=== PATIENT | female | born 1990 | race Caucasian/White ===

== ENCOUNTER 2019-09-29 13:20 | Emergency (ER) | payer OTHER, SELFPAY ==
[2019-09-29 13:36] VITALS: BP 139/100; PULSE 93; RESP 14; TEMP 36.7; O2SAT 99
--- NOTE | 2019-09-29 14:05 | ED.GENADULT ---
HPI - General Adult General Chief complaint: Upper Respiratory Infection Stated complaint: Sore Throat Time Seen by Provider: 09/29/19 14:05 Source: patient Mode of arrival: ambulatory Limitations: no limitations History of Present Illness HPI narrative: 28-year-old female patient presents to the [facility] with complaints of sore throat, nasal congestion, runny nose and low-grade fevers for the past 4 to 5 days. Patient denies any chest pain or shortness of breath. Patient states that she did not get a flu shot this year. Patient states she has been taking [id number] Gabrielle-Kulm cold and flu as well as Tylenol for symptoms. Patient denies or breast-feeding at this time. Related Data Home Medications Medication Instructions Recorded Confirmed insulin glargine [Lantus U-100 30 unit SUBCUT BID 09/29/19 09/29/19 Insulin] insulin lispro [Admelog U-100 10 unit SUBCUT TID 09/29/19 09/29/19 Insulin lispro] levothyroxine 137 mcg PO DAILY 09/29/19 09/29/19 Allergies Allergy/AdvReac Type Severity Reaction Status Date / Time Sulfa (Sulfonamide Allergy Unknown Rash Verified 09/29/19 13:51 Antibiotics) Review of Systems Review of Systems: Narrative: CONSTITUTIONAL: Positive subjective low-grade fever, positive body aches and chills, denies sweats. EYES: Denies visual changes, redness, or discharge. ENT: Positive rhinorrhea, congestion, positive sore throat, denies otalgia. CARDIOVASCULAR: Denies chest pain, palpitations, or edema. RESPIRATORY: Positive cough denies dyspnea. GASTROINTESTINAL: Denies abdominal pain, nausea, vomiting, or diarrhea. GENITOURINARY: Denies dysuria or hematuria. SKIN: Denies rash or itching. MUSCULOSKELETAL: Denies back pain, joint pain, or myalgia. NEUROLOGIC: Denies headache, numbness, or weakness. PSYCHIATRIC: Denies anxiety or depression. PMFSH Comments At the time of my signature I agree with nursing past medical history, surgical, social, and family history. There is no relevant family history pertinent to the presenting complaint. Exam Narrative: Exam Narrative: GENERAL: Well-appearing, well-nourished, and in no acute distress. HEAD: Normocephalic, atraumatic. No tenderness noted to frontal maxillary sinuses on palpation. EYES: PERRLA and EOMI. ENT: Nares with erythema and edema noted bilaterally, no rhinorrhea or epistaxis. Mucous membranes moist. Posterior pharynx with slight erythema but no tonsil enlargement no exudates or lesions present. Bilateral TMs are clear no erythema or foreign bodies in the canal. NECK: Supple. No lymphadenopathy CHEST: Clear to auscultation. No respiratory distress. HEART: Regular rate and rhythm. No murmur heard. Normal peripheral pulses. ABDOMEN: Soft, nontender, nondistended, normal active bowel sounds. EXTREMITIES: Normal range of motion. No edema. SKIN: Warm, dry, no rash. NEURO: No focal deficits. Alert and oriented x3. Course Vital Signs Vital signs: Vital Signs Temperature 36.7 C 09/29/19 13:36 Pulse Rate 93 09/29/19 13:36 Respiratory Rate 14 09/29/19 13:36 Blood Pressure 139/100 H 09/29/19 13:36 Pulse Oximetry 99 09/29/19 13:36 Temperature 36.7 C 09/29/19 13:36 Pulse Rate 93 09/29/19 13:36 Respiratory Rate 14 09/29/19 13:36 Blood Pressure 139/100 H 09/29/19 13:36 Pulse Oximetry 99 09/29/19 13:36 Vital signs reviewed. The patient has been informed that they may have pre-hypertension or Hypertension based on a BP reading in the department. I recommend that the patient call the primary care provider listed on their discharge instructions or a physician of their choice this week to arrange follow up for further evaluation of possible pre-hypertension or Hypertension Medical Decision Making Differential Diagnosis Differential Diagnosis: Differential diagnosis: Allergic rhinitis, chronic sinusitis, tonsillitis, acute sinusitis, infectious mononucleosis, seasonal influenza, pertussis, dipht
== END 2019-09-29 14:24 | disposition home or self-care (01) ==
PROVIDERS: Emergency Provider Nurse Practitioner Family
DX: J10.1 Influenza due to other identified influenza virus with other respiratory manifestations (principal); E11.9 Type 2 diabetes mellitus without complications; E03.9 Hypothyroidism, unspecified; Q96.9 Turner's syndrome, unspecified
CPT/HCPCS: 87081; 87804; 87880; 99213; G0463

== ENCOUNTER 2020-06-17 19:00 | Emergency (ER) | payer OTHER, SELFPAY ==
[2020-06-17 19:14] VITALS: BP 139/95; PULSE 107; RESP 16; TEMP 36.5; O2SAT 100
--- NOTE | 2020-06-17 19:24 | ED.GENADULT ---
HPI - General Adult General Chief complaint: Unspecified Stated complaint: hbp Source: patient Mode of arrival: ambulatory Limitations: no limitations History of Present Illness HPI narrative: Patient is a 29-year-old female who presents complaining of hypertension. She reports noticing her blood pressure was high when she returned from work. She reports blood pressure of 140s/100. Patient's current blood pressure is 139/95. She denies chest pain or shortness of breath, she denies headache. Patient has a history of Booker syndrome. Patient also reporting intermittent left leg cramping. She denies swelling or injury to the leg. She denies pain at this time. MD complaint: Hypertension Related Data Home Medications Medication Instructions Recorded Confirmed insulin glargine [Lantus U-100 30 unit SUBCUT BID 09/29/19 06/17/20 Insulin] insulin lispro [Admelog U-100 10 unit SUBCUT TID 09/29/19 06/17/20 Insulin lispro] levothyroxine 137 mcg PO DAILY 09/29/19 06/17/20 Allergies Allergy/AdvReac Type Severity Reaction Status Date / Time Sulfa (Sulfonamide Allergy Unknown Rash Verified 06/17/20 19:20 Antibiotics) Review of Systems Review of Systems: Narrative: CONSTITUTIONAL: Denies fever, chills, or sweats. EYES: Denies visual changes, redness, or discharge. ENT: Denies rhinorrhea, congestion, sore throat, or otalgia. CARDIOVASCULAR: Denies chest pain, palpitations, or edema. RESPIRATORY: Denies cough or dyspnea. GASTROINTESTINAL: Denies abdominal pain, nausea, vomiting, or diarrhea. GENITOURINARY: Denies dysuria or hematuria. SKIN: Denies rash or itching. MUSCULOSKELETAL: Left leg cramping NEUROLOGIC: Denies headache, numbness, dizziness, or weakness. PSYCHIATRIC: Denies anxiety or depression. [facility] Past Medical History Medical History Diabetes Hypothyroidism Booker syndrome Social History Social History (Updated 06/17/20 @ 19:29 by BRADEN Gonzalez) Smoking status: Never smoker Alcohol intake: never Substance use: never Living arrangements: with family Exam Narrative: Exam Narrative: GENERAL: Well-appearing, well-nourished, and in no acute distress. HEAD: Normocephalic, atraumatic. EYES: No redness or drainage. ENT: Mucous membranes pink and moist. NECK: AROM. Supple. No lymphadenopathy. CHEST: No respiratory distress. HEART: Regular rate and rhythm. No murmur appreciated. Normal peripheral pulses. EXTREMITIES: Normal range of motion. No edema. SKIN: Warm, dry, no rash. NEURO: No focal deficits. Alert and oriented x3. Gait steady. PSYCH: Normal affect. No signs of depression or anxiety. Course Vital Signs Vital signs: Vital Signs Temperature 36.5 C 06/17/20 19:14 Pulse Rate 107 H 06/17/20 19:14 Respiratory Rate 16 06/17/20 19:14 Blood Pressure 139/95 H 06/17/20 19:14 Pulse Oximetry 100 06/17/20 19:14 Temperature 36.5 C 06/17/20 19:14 Pulse Rate 107 H 06/17/20 19:14 Respiratory Rate 16 06/17/20 19:14 Blood Pressure 139/95 H 06/17/20 19:14 Pulse Oximetry 100 06/17/20 19:14 Reviewed. Patient has been instructed to follow-up with her PCP regarding her blood pressure. Medical Decision Making MDM Narrative Medical decision making narrative: Patient concerned with hypertension, patient is asymptomatic in urgent care. Discussed with patient that follow-up is necessary with PCP for further evaluation. Discussed with patient left lower leg pain, no edema noted, good pedal pulses discussed symptoms to watch for and follow-up necessary with PCP as well. Patient is stable for discharge to home with outpatient follow-up. Patient aware if she develops chest pain, shortness of breath or headache, to go to the emergency department for further evaluation. Differential Diagnosis Differential Diagnosis: Hypertension Vital Signs Vital Signs: Vital Signs Temperature 36.5 C 06/17/20 19:14 P
== END 2020-06-17 19:59 | disposition home or self-care (01) ==
PROVIDERS: Emergency Provider Nurse Practitioner; PCP Family Medicine
DX: I10 Essential (primary) hypertension (principal); E11.9 Type 2 diabetes mellitus without complications; E03.9 Hypothyroidism, unspecified; Q96.9 Turner's syndrome, unspecified; Z79.4 Long term (current) use of insulin
CPT/HCPCS: 99211; G0463

== ENCOUNTER 2021-07-25 10:18 | Emergency (ER) | payer OTHER, SELFPAY ==
[2021-07-25 10:25] VITALS: BP 135/88; PULSE 84; RESP 18; TEMP 36.5; O2SAT 100
--- NOTE | 2021-07-25 10:32 | ED.URI ---
HPI - URI/Sore Throat General Chief Complaint: Upper Respiratory Infection Stated Complaint: sore throat Time Seen by Provider: 07/25/21 10:32 Source: patient, RN notes reviewed and old records reviewed Mode of arrival: ambulatory Limitations: no limitations History of Present Illness HPI Narrative: 30-year-old female presents to the [facility] with complaints of a sore throat since yesterday. Use cough drops. No other treatment prior to arrival Has some sinus congestion and postnasal drip. No fevers, chest pain, abdominal pain. MD elicited complaint: sore throat and rhinorrhea Related Data Home Medications Medication Instructions Recorded Confirmed insulin glargine [Lantus U-100 30 unit SUBCUT BID 09/29/19 07/25/21 Insulin] insulin lispro [Admelog U-100 10 unit SUBCUT TID 09/29/19 07/25/21 Insulin lispro] levothyroxine 137 mcg PO DAILY 09/29/19 07/25/21 nifedipine 60 mg PO DAILY 07/25/21 07/25/21 pantoprazole 20 mg PO DAILY 07/25/21 07/25/21 Allergies Allergy/AdvReac Type Severity Reaction Status Date / Time Sulfa (Sulfonamide Allergy Unknown Rash Verified 07/25/21 10:33 Antibiotics) Review of Systems Review of Systems: All systems reviewed & are unremarkable except as noted in HPI and below Constitutional: Constitutional: Reports no additional constitutional complaints, Denies chills and Denies fever(s) Eyes: Eyes: Reports no additional eye complaints ENT: Reports as per HPI, Reports nasal congestion and Reports sore throat Cardiovascular: Cardiovascular: Reports no additional cardiovascular complaints and Denies chest pain Respiratory: Respiratory: Reports no additional respiratory complaints, Denies cough, Denies dyspnea and Denies wheezing Musculoskeletal: Musculoskeletal: Reports no additional musculoskeletal complaints Integumentary/Breasts: Skin/Breast: Reports system reviewed and no additional complaints, except as docu Neurologic: Reports system reviewed and no additional complaints, except as documented Psychiatric: Psychiatric: Reports no additional psychiatric complaints Allergic/Immunologic: Allergic/Immunologic: Reports no additional allergic/immunologic complaints PMFSH Past Medical History Medical History Diabetes Hypothyroidism Booker syndrome Social History Social History Smoking status: Never smoker Alcohol intake: never Substance use: never Comments At the time of my signature, I reviewed and agree with the nursing past medical, surgical, social, and family history. There is no relevant family history pertinent to the patient complaint. Exam Const: General: healthy appearing, no acute distress and alert Nutritional Appearance: well nourished Orientation/consciousness: patient oriented x3 Limitations: no limitations HENMT: Head: normal to inspection Ears: hearing grossly normal bilaterally and external ears normal General nose exam: Normal external nose present and Nasal discharge present clear Face and sinus: normal facial exam and sinuses nontender Mouth: Yes moist mucous membranes abnormal Throat: uvula midline, postnasal drainage and no uvular edema Eyes: Conjunctivae: conjunctivae normal Pupils: Equal, round and reactive pupils present Neck: Neck: normal visual inspection, no lymphadenopathy and no meningeal signs Chest: Chest palpation & inspection: normal inspection of the chest Resp: Effort & Inspection: normal respiratory effort and no use of accessory muscles Auscultation: clear to auscultation bilaterally, no crackles, no rales, no rhonchi and no wheezes Cardio: Rate: regular rate Rhythm: regular rhythm GI: GI Palp: Yes Soft to palpation and No Tenderness to palpation present (GI) : General: Yes no CVA tenderness Back/Spine/Pelvis: Back: no CVA tenderness Skin: General skin exam: normal color Rashes: no rashes Wounds: no wounds N
== END 2021-07-25 11:05 | disposition home or self-care (01) ==
PROVIDERS: Emergency Provider Nurse Practitioner; PCP Family Medicine
DX: J02.9 Acute pharyngitis, unspecified (principal); E11.9 Type 2 diabetes mellitus without complications; E03.9 Hypothyroidism, unspecified; Q96.9 Turner's syndrome, unspecified
CPT/HCPCS: 87081; 87880; 99213; G0463

== ENCOUNTER 2022-07-25 16:13 | Emergency (ER) | payer OTHER, SELFPAY ==
--- NOTE | 2022-07-25 16:14 | ED.URI ---
HPI - URI/Sore Throat General Chief Complaint: Upper Respiratory Infection Stated Complaint: throat Time Seen by Provider: 07/25/22 16:14 Source: patient and RN notes reviewed History of Present Illness HPI Narrative: Patient is a 31-year-old female who presents to the Urgent Care with complaints of sore throat and mild cough since yesterday. Patient denies any fevers, nausea, vomiting or ill exposures. States that she has not taken anything [id number] for her symptoms. No other acute complaints. No acute distress noted. Patient aware of the plan of care. Some parts of this dictation were generated by voice recognition software and may contain typographical and/or grammatical inaccuracies. Related Data Home Medications Medication Instructions Recorded Confirmed insulin glargine 100 unit/mL 30 unit subcut BID 09/29/19 07/25/21 subcutaneous solution (Lantus U-100 Insulin) insulin lispro 100 unit/mL 10 unit subcut TID 09/29/19 07/25/21 subcutaneous solution (Admelog U-100 Insulin lispro) levothyroxine 137 mcg tablet 137 mcg PO DAILY 09/29/19 07/25/21 nifedipine 60 mg tablet,extended 60 mg PO DAILY 07/25/21 07/25/21 release 24 hr pantoprazole 20 mg tablet,delayed 20 mg PO DAILY 07/25/21 07/25/21 release Allergies Allergy/AdvReac Type Severity Reaction Status Date / Time Sulfa (Sulfonamide Allergy Unknown Rash Verified 07/25/21 10:33 Antibiotics) Review of Systems Review of Systems: CONSTITUTIONAL: Denies fever, chills, or sweats. EYES: Denies visual changes, redness, or discharge. ENT: Reports a sore throat CARDIOVASCULAR: Denies chest pain, palpitations, or edema. RESPIRATORY: reports dry cough without dyspnea GASTROINTESTINAL: Denies abdominal pain, nausea, vomiting, or diarrhea. GENITOURINARY: Denies dysuria or hematuria. SKIN: Denies rash or itching. MUSCULOSKELETAL: Denies back pain, joint pain, or myalgia. NEUROLOGIC: Denies headache, numbness, or weakness. All other systems reviewed are negative, except as documented in HPI. [facility] Past Medical History Medical History Diabetes Hypothyroidism Booker syndrome Social History Social History (Reviewed 07/25/21 @ 10:38 by KAMILLA Jose Smoking status: Never smoker Alcohol intake: never Substance use: never Comments At the time of my signature, I reviewed and agree with the nursing past medical, surgical, social, and family history. There is no relevant family history pertinent to the patient complaint. Exam Narrative: GENERAL: This is a well-nourished, well-developed patient, in no apparent distress. HEAD: normocephalic, atraumatic. EYES: PERRL. Sclera clear/white. Vision is grossly intact. EARS: External ears normal, auditory canals clear and without drainage, TMs normal without perforation. Hearing grossly intact. NOSE: External nose normal with no obvious nasal discharge, nares without redness, no rhinorrhea. THROAT: Mucous membranes moist, posterior pharynx clear. mild postnasal drainage NECK: Neck supple, non-tender without lymphadenopathy CARDIOVASCULAR: Regular rate and rhythm without murmurs, gallops, or rubs. RESPIRATORY: Clear to auscultation. Breath sounds equal bilaterally. No wheezes, rales, or rhonchi. SKIN: warm, intact with no suspicious lesions or rash, good texture and turgor. NEURO: awake, alert, and oriented to person, place and time. There were no obvious focal neurologic abnormalities. EXTREMITIES: No clubbing, cyanosis, or edema. Course Course Level of Care: Express Care Visit Vital Signs Vital signs: Vital Signs Temperature 98.3 F 07/25/22 16:22 Pulse Rate 98 07/25/22 16:22 Respiratory Rate 16 07/25/22 16:22 Blood Pressure 134/89 07/25/22 16:22 Pulse Oximetry 98 07/25/22 16:22 Oxygen Delivery Room Air 07/25/22 16:22 Temperature 98.3 F 07/25/22 16:22 Pulse Rate 98 07/25/22 16:22 Respiratory
[2022-07-25 16:22] VITALS: BP 134/89; PULSE 98; RESP 16; TEMP 36.8; O2SAT 98
== END 2022-07-25 16:52 | disposition home or self-care (01) ==
PROVIDERS: Emergency Provider Nurse Practitioner Family; PCP Family Medicine
DX: J02.9 Acute pharyngitis, unspecified (principal); E11.9 Type 2 diabetes mellitus without complications; E03.9 Hypothyroidism, unspecified; Q87.19 Other congenital malformation syndromes predominantly associated with short stature
CPT/HCPCS: 87081; 99212; G0463